=== PATIENT | male | born 1965 | race Caucasian/White ===

== ENCOUNTER 2018-01-11 11:01 | Emergency (ER) | END 2018-01-11 14:23 | disposition home or self-care (01) ==

== ENCOUNTER 2018-04-23 09:42 | Emergency (ER) | END 2018-04-23 12:20 | disposition home or self-care (01) ==

== ENCOUNTER 2018-04-26 13:26 | Inpatient (IN) | END 2018-04-27 17:25 | disposition home or self-care (01) | DRG 723 ==